=== PATIENT | female | born 1990 | race Caucasian/White ===

== ENCOUNTER 2016-10-25 06:02 | Inpatient (IN) | payer BC ==
[~2016-10-25] VITALS: Ht 167.6 cm; Wt 89.3 kg
[2016-10-25] MEDS ORDERED: MAG-AL + SIM LIQUID 30 ML UDC PO PRN (06:15)
[2016-10-25] MEDS ORDERED: OXYTOCIN 30 UNIT in D5LR 500 ML SCH (06:15)
[2016-10-25] MEDS ORDERED: ACETAMINOPHEN 500 MG TABLET PO PRN (06:15)
[2016-10-25] MEDS ORDERED: LIDOCAINE 1% (10mg/ml) 2ml SDV ID PRN (06:15)
[2016-10-25] MEDS ORDERED: CALCIUM CARBONATE 500mg Chewable TAB PO PRN (06:15)
[2016-10-25 06:45] VITALS: BP 124/73; PULSE 103; RESP 18; TEMP 98.4; O2SAT 98
[2016-10-25] MEDS ORDERED: D5LR 1,000 ML IV PRN (06:45)
[2016-10-25 06:52] LABS: HCT - HEMATOCRIT 33.6 % (36-46); HGB - HEMOGLOBIN 11.2 GM/DL (12-16); MEAN CORPUSCULAR HGB 31.9 UUG (26-34); MEAN CORPUSCULAR HGB CONC(MCHC 33.3 GM/DL (31-37); MEAN CORPUSCULAR VOLUME 95.7 UM3 (80-100); MEAN PLATELET VOLUME 9.8 UM3 (9.4-12.4); RED BLOOD COUNT 3.51 M/MM3 (4.00-5.20); WBC - WHITE BLOOD COUNT 10.7 T/MM3 (4.5-11.0)
[2016-10-25] MEDS: LR 1,000 ML IV PRN ×3 (07:03→13:36)
[2016-10-25] MEDS ORDERED: DiphenhydrAMINE 50 MG/ML INJECTION IV PRN (11:00)
[2016-10-25] MEDS ORDERED: ONDANSETRON 4mg/2ml INJECTION IV PRN (11:00)
[2016-10-25] MEDS ORDERED: ROPIVACAINE 1% 200 MG, SUFENTANIL 50 MCG in NORMAL SALINE 80 ML EPI PRN (11:00)
[2016-10-25] MEDS ORDERED: NALOXONE 0.4mg/ml INJECTION IV PRN (11:00)
--- NOTE | 2016-10-25 11:06 | ANESPREOP ---
Anesthesia Record Date and Time DATE: 10/25/16 TIME: 11:05 Proposed Surgical Procedure Allergies: Coded Allergies: clindamycin (Verified Allergy, Unknown, 08/10/13) doxycycline (Verified Allergy, Unknown, 08/10/13) Ht/Wt/BMI Height: 5 ' 6.00 " Weight: 89.270 kg BMI: kg/m2 Vital Signs Date Time Temp Pulse Resp B/P Pulse Ox O2 Delivery O2 Flow Rate FiO2 10/25/16 06:45 98.4 103 18 124/73 98 Room Air Medications Inpatient Medications Current Medications Medications (Trade) Dose Ordered Sig/Sergio Start Time Stop Time Status Last Admin Dose Admin Dextrose/Lactated Ringer's 1,000 ml @ 0 mls/hr Q0M PRN 10/25/16 06:45 10/25/16 07:04 0 MLS/HR Oxytocin/Dextrose/ Lactated Ringer's (Pitocin/D5lr) 503 ml @ 0 mls/hr Q0M 10/25/16 06:15 10/25/16 07:03 0 MLS/HR Lidocaine HCl 0.2 mg 0.2 mg PRN PRN 10/25/16 06:15 Lactated Ringer's (Lactated Ringers) 1,000 ml @ 0 mls/hr Q0M PRN 10/25/16 06:07 10/25/16 07:03 0 MLS/HR Acetaminophen (Tylenol Extra Strength) 1-2 TABS = 500-1,000 MG Q4H PRN 10/25/16 06:15 Al Hydroxide/Mg Hydroxide (Maalox) 30 ml Q4H PRN 10/25/16 06:15 Calcium Carbonate 1-2 TABS Q2H PRN 10/25/16 06:15 Ropivacaine/ Sufentanil Citrate/Sodium Chloride (Naropin/Sufenta/ NS) 101 ml @ 10 mls/hr PRN PRN 10/25/16 11:00 UNV Naloxone HCl (Narcan) 0.1 mg Q2M PRN 10/25/16 11:00 UNV Ondansetron HCl (Zofran) 4 mg Q6H PRN 10/25/16 11:00 UNV Diphenhydramine HCl (Benadryl) 25-50 MG = 0.5-1 ML Q3H PRN 10/25/16 11:00 UNV No Active Prescriptions or Reported Meds Currently on Beta Amy: No Medical/Surgical History Smoking Status: Current every day smoker (Pt states 5 cigarettes per day) Has pt. smoked today?: No Alcohol Intake: none Past Surgical History Orthopedic Surgeries: Abdominal Surgeries: Genitourinary Surgeries: Cardiac Surgeries: Endocrine Surgeries: Reproductive Surgeries: Neurological Surgeries: Ear Surgeries: Nose Surgeries: Throat Surgeries: Other Surgeries: Anesthesia Adverse Reactions: FOUND none Pertinent Findings Laboratory Tests 10/25/16 06:44 EKG Rhythm: Sinus Rhythm Physical Exam Respiratory: Bilat breath sounds equal, Lungs clear Cardiovascular: FOUND Regular rate, rhythm ASA: 2 Plan Anesthesia Plan: Other (LED) Discussion Discussed risks/options/alternatives of anesthesia and questions answered. Patient consents. Nursing pain assessment noted. Attestation Statement Prior to the delivery of any anesthetic medication, I examined the patient, developed the plan, obtained the patient's consent and discussed the risk and benefits of the procedure with the patient/guardian. RUTHY HUTSON Oct 25, 2016 11:06
[2016-10-25] MEDS: OXYTOCIN 30 UNIT in D5W 500 ML IV ONE ×2 (17:02→18:58)
[2016-10-25] MEDS ORDERED: PHENYLEPHRINE RECTAL SUPPOSITORY RECTALLY PRN (17:15)
[2016-10-25] MEDS ORDERED: HYDROCORTISONE 2.5% CREAM 30 GM RECTALLY PRN (17:15)
[2016-10-25] MEDS ORDERED: DiphenhydrAMINE 25 MG CAPSULE PO PRN (17:15)
[2016-10-25] MEDS ORDERED: MILK OF MAGNESIA 30 ML SUSP PO PRN (17:15)
--- NOTE | 2016-10-25 18:54 | LDNF ---
DATE OF DELIVERY 10/25/2016 ADDIE Salazar is a 26-year-old 2, para 1 at 39 weeks 5 days gestational age who was brought in this morning for a logistical Pitocin induction. Her membranes were ruptured artificially, returning clear fluids. She received an epidural. She progressed steadily throughout labor. She only had to push with one contraction. She had a spontaneous vaginal delivery in the ERIC position of a viable male , Apgars 8/9, weight 3285 g, name "Juan Carlos." The baby was vigorous at delivery so he was placed on mom's abdomen and the cord clamping was delayed for more than two minutes. The placenta delivered spontaneously. She had a small midline periurethral laceration that was not bleeding so it was not repaired. Mom and baby tolerated the delivery well. [facility]
[2016-10-25] MEDS: IBUPROFEN 800 MG TABLET PO PRN (20:57)
[2016-10-25] MEDS: HYDROCODONE/APAP 5 mg/325 mg TABLET PO PRN (20:57)
[2016-10-25 21:00] VITALS: BP 116/58; PULSE 98; RESP 18; TEMP 97.8; O2SAT 97
--- NOTE | 2016-10-25 21:22 | NUR ---
Epidural Epidural catheter removed without complications, tip intact, no S/S of infection noted. Area cleansed with alcohol, betadine and covered with a bandaid. Pt. educated about S/S of infection and to call doctor with concerns.
--- NOTE | 2016-10-25 21:25 | NUR ---
Progress Note Pt dangled, stood at bedside, and ambulated to bathroom with RN supervision and denied dizziness. Pt unable to void. 1 half dollar size clot passed. RN educated pt about pericare and skin care. Pt verbalized understanding. RN assisted with pericare and skin care. Pad and ice pack changed with tucks pads and benzo spray. Linens and underpad changed. Will continue to monitor per plan of care.
[2016-10-26 02:00] VITALS: BP 106/51; PULSE 98; RESP 18; TEMP 98.1; O2SAT 98
--- NOTE | 2016-10-26 02:21 | NUR ---
Shift Summary Pt's VS stable. Fundus firm, small lochia, and voiding w/o difficulty. IVSL. Pt tolerating po fluids and regular diet. Pain controlled with po pain meds as ordered, Motrin and Vinson. Pt up ad armani in room. Pt performing cares for self and baby with help of FOB at bedside. Pt infant well in cradle hold ad armani. Side rails up X2 and call marc in reach. Will continue to monitor per plan of care.
--- NOTE | 2016-10-26 02:21 | NUR ---
Chart Check 24 hour chart check completed
--- NOTE | 2016-10-26 08:08 | PNPDOC ---
Progress Note PPD1 Rubella: Immune GBS: Negative Blood Type:A pos Subjective 10/26/16 Lochia: Moderate Pain: Controlled Voiding: Voiding Nausea and Vomiting: No Nausea/Vomiting Objective VSS AF Vital Signs Date Time Temp Pulse Resp B/P Pulse Ox O2 Delivery O2 Flow Rate FiO2 10/26/16 02:00 98.1 98 18 106/51 98 Room Air General: Alert and Oriented Respiratory: Non-labored Abdomen: Fundus Firm Extremities: Non-tender Edema: None Assessment SP, Plan Routine Care (Plans for dismissal tomorrow. ) DENIS [employer] Oct 26, 2016 08:08
[2016-10-26] MEDS: IBUPROFEN 800 MG TABLET PO PRN ×2 (08:21→19:23)
[2016-10-26] MEDS: HYDROCODONE/APAP 5 mg/325 mg TABLET PO PRN ×3 (08:21→15:27)
[2016-10-26 08:30] VITALS: BP 105/65; PULSE 82; RESP 18; TEMP 97.8; O2SAT 100
[2016-10-26] MEDS ORDERED: DOCUSATE CALCIUM 240 MG CAPSULE PO SCH (09:00)
--- NOTE | 2016-10-26 10:00 | NUR ---
CM THIS WORKER MET WITH PT AT THIS TIME. PT SITTING IN BED. FOB AT BEDSIDE. PATERNAL AUNT ALSO PRESENT AND HOLDING BABY. THIS WORKER INTRODUCED SELF AND ROLE OF CASE MANAGEMENT. PARENTS REPORTED THAT THEY HAD ALL NECESSARY ITEMS FOR BABY AT HOME. FAMILY SUPPORT ASSESSED BY THIS WORKER AND PARENTS REPORTED GOOD SUPPORT FROM FAMILY AND FRIENDS THAT LIVED NEARBY. PARENTS REPORTED TWO OTHER CHILDREN AGES 3 AND 6 THAT RESIDE WITH THEM. THIS WORKER DISCUSSED SERVICES IN PLACE. MOTHER REPORTED THAT SHE HAS BEEN RECEIVING [facility] AND THEY ARE PLANNING TO HELP HER GET A BREAST PUMP. THIS WORKER PROVIDED CONTACT INFORMATION FOR EMILY AT THE [facility]ICE TO HELP WITH ADDITIONAL SERVICES IF NEEDED. THIS WORKER ALSO PROVIDED PT WITH A PROGRAM THROUGH [employer] TO OBTAIN A BREAST PUMP. PARENTS BOTH DENIED NEEDS AT THIS TIME. THIS WORKER PROVIDED CONTACT INFORMATION FOR PT AND ENCOURAGED TO CONTACT THIS WORKER WITH ANY NEEDS.
[2016-10-26 15:17] VITALS: BP 112/80; PULSE 76; RESP 18; TEMP 97.8; O2SAT 100
[2016-10-26] MEDS ORDERED: IBUP-1547 PO (18:39)
[2016-10-26] MEDS ORDERED: HYDR-4246 PO (18:39)
== END 2016-10-26 19:35 | disposition home or self-care (01) | DRG 775 ==
LOC: MC 06:02
PROVIDERS: ADMIT Obstetrics & Gynecology; ATTEND Obstetrics & Gynecology
PROC: 10E0XZZ Delivery of Products of Conception, External Approach (ICD-10-PCS; principal; 2016-10-25)
PROC: 3E033VJ Introduction of Other Hormone into Peripheral Vein, Percutaneous Approach (ICD-10-PCS; 2016-10-25)
PROC: 10907ZC Drainage of Amniotic Fluid, Therapeutic from Products of Conception, Via Natural or Artificial Opening (ICD-10-PCS; 2016-10-25)
DX: O26.893 Other specified pregnancy related conditions, third trimester (principal); O71.82 Other specified trauma to perineum and vulva; O32.8XX0 Maternal care for other malpresentation of fetus, not applicable or unspecified; O09.33 Supervision of pregnancy with insufficient antenatal care, third trimester; O99.334 Smoking (tobacco) complicating childbirth; F17.200 Nicotine dependence, unspecified, uncomplicated; Z3A.39 39 weeks gestation of pregnancy; Z37.0 Single live birth
CPT/HCPCS: 36415; 85027; 86850; 86900; 86901

== ENCOUNTER 2017-10-26 05:00 | Inpatient (IN) ==
[2017-10-26] MEDS ORDERED: D5LR 1,000 ML IV PRN (05:04)
[2017-10-26] MEDS ORDERED: OXYTOCIN DRIP 30 UNIT/500 ML ML IV PRN ×2 (05:04→14:51)
[2017-10-26] MEDS ORDERED: ACETAMINOPHEN 500 MG TABLET PO PRN ×3 (05:05→15:45)
[2017-10-26] MEDS ORDERED: LIDOCAINE 1% (10mg/ml) 2mL INJ PF SDV ID PRN (05:05)
[2017-10-26] MEDS ORDERED: MAG-AL + SIM ORAL LIQUID 30ml PO PRN ×3 (05:05→15:45)
[2017-10-26] MEDS ORDERED: METHYLERGONOVINE 0.2 MG/ML INJECTION IM PRN (05:05)
[2017-10-26] MEDS ORDERED: CARBOPROST 250 MCG/ML INJECTION IM PRN (05:05)
[2017-10-26] MEDS ORDERED: CALCIUM CARBONATE Chewable 500mg TABLET PO PRN ×3 (05:05→15:45)
[2017-10-26] MEDS: LR 1,000 ML IV PRN ×2 (05:44→11:24)
[2017-10-26 05:55] VITALS: BMI 33.3
[2017-10-26] MEDS ORDERED: DiphenhydrAMINE 50 MG/ML INJECTION IVP PRN (09:04)
[2017-10-26] MEDS ORDERED: ONDANSETRON 4 MG/2 ML INJECTION IVP PRN (09:04)
[2017-10-26] MEDS ORDERED: ROPIVACAINE 1% 10MG/ML INJ 200 MG, SUFentanil 50 MCG in NS 100 ML EPI PRN (09:04)
[2017-10-26] MEDS ORDERED: NALOXONE 0.4 MG/ML INJECTION IVP PRN (09:04)
--- NOTE | 2017-10-26 09:04 | Anesthesia Preoperative Report ---
Anesthesia Epidural/Spinal Rec - Date and Time Date: 10/26/17 Procedure: Labor Epidural Plan: Epidural - Vital Signs Vital Signs: Temperature 98.5 F 10/26/17 05:18 Pulse Rate 103 H 10/26/17 05:18 Respiratory Rate 16 10/26/17 05:18 Blood Pressure 117/70 10/26/17 05:18 Pulse Oximetry 98 10/26/17 05:18 /Para: P:2 - Medictaions & Allergies Inpatient Medications: Current Medications Acetaminophen (Tylenol) 500 - 1,000 mg PO Q4H PRN PRN Reason: Pain Al Hydroxide/Mg Hydroxide (Maalox Plus) 30 ml PO Q3H PRN PRN Reason: Indigestion Calcium Carbonate (Tums) 500 - 1,000 mg PO Q2H PRN PRN Reason: Indigestion Carboprost Tromethamine (Hemabate) 250 mcg IM O PRN PRN Reason: .Downtime Dextrose/Lactated Ringer's (Dextrose 5%-Lactated Ringers) 1,000 mls @ 125 mls/ hr IV .Q8H PRN PRN Reason: Labor Last Admin: 10/26/17 05:42 Dose: 125 mls/hr Oxytocin (Pitocin Drip) 30 unit in 500 mls @ 2 mls/hr IV .Q24H PRN; Protocol PRN Reason: Induction/Augmentation Last Admin: 10/26/17 05:44 Dose: 2 mls/hr Lactated Ringer's (Lactated Ringers) 1,000 mls @ 999 mls/hr IV .Q1H1M PRN Last Admin: 10/26/17 05:44 Dose: 999 mls/hr Lidocaine HCl (Xylocaine-Mpf 1% Vial) 0.2 mg ID O PRN PRN Reason: IV Start Methylergonovine Maleate (Methergine) 0.2 mg IM O PRN Misoprostol (Cytotec) 800 mcg MO ONCE PRN Allergies/Adverse Reactions: Allergies Allergy/AdvReac Type Severity Reaction Status Date / Time clindamycin Allergy Unknown Verified 07/14/17 12:49 doxycycline Allergy Unknown Verified 07/14/17 12:49 - Home Medications Home Medications: Home Medications Medication Instructions Recorded Confirmed Type 1 tab PO DAILY 03/18/17 10/26/17 History vitamin,calcium,igobfale-cbeq-sbqyz acid tablet Acetaminophen 650 mg PO PRN 07/14/17 10/26/17 History - Medical History Respiratory: DENIES: Asthma Gastrointestional: DENIES: Gastroesophageal Reflux Disease Neuro/Musculoskeletal: Reports: Headaches Other History: Reports: Now - Surgical History HEENT Surgeries: Reports: Tonsillectomy Reproductive Surgery/Treatment: DENIES: Section Anesthesia Reactions: None Hx Family Anesthesia Reaction: No History of Motion Sickness: No - Social History Smoking Status: Current every day smoker Second Hand Exposure: No Substance Use Type: does not use Alcohol Intake Frequency: does not drink - Pertinent Findings Lab Data: CBC and BMP 10/26/17 05:28 - Physical Exam Respiratory Exam: lungs clear, bilateral breath sounds equal Cardiovascular Exam: regular rate and rhythm - Airway Assessment Mallampati Score: II TMD: 3 Fingerbreadths Neck Extension: good Overall Assessment: may be difficult intubation - ASA ASA Score: 2 - Discussion Discussion: Discussed risks/options/alternatives of anesthesia and questions answered. Patient consents. Nursing pain assessment noted. Anesthesia Discussion: spouse Attestation Statement: Prior to the delivery of any anesthetic medication, I examined the patient, developed the plan, obtained the patient's consent and discussed the risk and benefits of the procedure with the patient/guardian.
[2017-10-26] MEDS ORDERED: IBUPROFEN 800 MG TABLET PO PRN (14:51)
[2017-10-26] MEDS ORDERED: HYDROCODONE/APAP 5mg/325mg TABLET PO PRN (14:51)
[2017-10-26] MEDS ORDERED: HYDROCORTISONE 2.5% CREAM 30gm RECTALLY PRN ×2 (14:51→15:45)
[2017-10-26] MEDS ORDERED: DiphenhydrAMINE 25 MG CAPSULE PO PRN ×2 (14:51→15:45)
[2017-10-26] MEDS ORDERED: SALINE FLUSH 10ml SYRINGE IV PRN (14:51)
[2017-10-26] MEDS ORDERED: OXYTOCIN DRIP 30 UNIT/500 ML ML IV SCH (15:00)
[2017-10-26] MEDS ORDERED: ACETAMINOPHEN 325 MG TABLET PO PRN (15:38)
--- NOTE | 2017-10-26 17:58 | Labor and Delivery Note ---
DATE OF DELIVERY 10/26/2017 NARRATIVE The patient is a 27-year-old G3, P2 who presented to the hospital at 39 weeks 1 day estimated gestational age for Pitocin induction secondary to logistics. She was dilated to 3 cm on presentation. Baby had a reactive and reassuring strip. Pitocin was started. After several hours amniotomy was performed and the patient progressed through labor uneventfully. She was able to dilate to complete without any further intervention. She did have recurrent variable decelerations throughout the last portion of labor but otherwise a reassuring strip. After the patient dilated to complete and +2 she was ready to push. She was able to deliver the baby in two pushes. After the delivery of the head I did check for a cord. There was no cord. The anterior shoulder was delivered uneventfully. With delivery of the posterior shoulder it was noted that the posterior arm was folded back behind his back with the shoulder in extended position and the hand had delivered partially with the head. The baby was vigorous and moved all extremities equally immediately on delivery. The baby was bulb suctioned and placed on the mother's abdomen for further stimulation. After cord pulsation stopped the cord was doubly clamped and the father of the baby then cut the cord. Cord segment was then collected. The placenta delivered uneventfully. Uterine massage was performed. Active management of the third stage of labor with Pitocin was completed. The cervix, vaginal sidewalls , labial and periurethral areas were examined. There were two small abrasions at the periurethral midline and the right periurethral area that were not bleeding and there was no repair indicated. She did start to have some uterine atony which resolved fairly quickly with uterine massage and did not recur. Both mom and baby are doing well at the time of this dictation. [facility]
[2017-10-26] MEDS: HYDROCODONE/APAP 5mg/325mg TABLET PO PRN (18:41)
[2017-10-27] MEDS: IBUPROFEN 800 MG TABLET PO PRN ×2 (03:46→12:04)
[2017-10-27] MEDS: HYDROCODONE/APAP 5mg/325mg TABLET PO PRN ×3 (03:47→13:31)
[2017-10-27] MEDS ORDERED: DOCUSATE CALCIUM 240 MG CAPSULE PO SCH ×2 (09:00)
[2017-10-27] MEDS ORDERED: PRENATAL VITAMIN TABLET PO SCH (09:00)
--- NOTE | 2017-10-27 16:13 | Progress Note ---
OB PP Progress Note Free Text - Date Date: 10/27/17 - Progress Note Progress Note: PPD#1 S/P w/o lac Doing very well. Minimal lochia. BF well. AF/VSS, FF/below umb, no pedal edema, neg Rock's bilaterally D/c to home today. Desires Nexplanon. Pt to call clinic to schedule, discussed NPV until after the procedure. F/u for PPV at 6 weeks.
[2017-10-27 16:41] VITALS: BP 105/68; PULSE 72; RESP 18; TEMP 97.8; O2SAT 99
== END 2017-10-27 18:05 | disposition home or self-care (01) | DRG 774 ==
LOC: MC 05:00
PROVIDERS: ADMIT Family Medicine; ATTEND Family Medicine